=== PATIENT | female | born 1950 | race Caucasian/White ===

== ENCOUNTER 2019-06-21 08:56 | Emergency (ER) | payer OTHER ==
[~2019-06-21] VITALS: Ht 157.5 cm; Wt 69.9 kg
[2019-06-21 09:23] VITALS: BP 112/73
--- NOTE | 2019-06-21 09:29 | NUR ---
PT AMBULATED TO ER BED 01
--- NOTE | 2019-06-21 10:03 | NUR ---
PATIENT PRESENTS TO ED WITH C/O INTERMITENT N/V/D X 1 MONTH. PT STATES THAT SHE NOTICED SYMPTOMS AFTER UNDERGOING KNEE REPLACEMENT SURGERY LAST APR 2019. DENIES URINARY PROBLEMS. NO OTHER SYMPTOMS REPORTED. ABDOMEN IS SOFT, NON-TENDER. BOWEL SOUNDS ACTIVE ON ALL QUADRANTS. PATIENT STATES PAIN OF 0/10 AT THIS TIME; VSS; PATIENT POSITIONED FOR COMFORT; HOB ELEVATED; BEDRAILS UP X2; BED DOWN. ER MD MADE AWARE OF PT STATUS. PMH: DM MEDS: OMEPRAZOLE, ONDANSETRON, PROCHLORPERAZINE NKA
[2019-06-21 12:01] VITALS: BP 112/73
--- NOTE | 2019-06-21 12:02 | NUR ---
Patient discharged with v/s stable. Written and verbal after care instructions given and explained. Patient alert, oriented and verbalized understanding of instructions. Ambulatory with assistive device (walker). All questions addressed prior to discharge. ID band removed. Patient advised to follow up with PMD. Rx of CIPRO, PHENERGAN given. Patient educated on indication of medication including possible reaction and side effects. Opportunity to ask questions provided and answered.
== END 2019-06-21 12:02 | disposition home or self-care (01) ==
LOC: MED 08:56
DX: R10.9 Unspecified abdominal pain (principal); R11.2 Nausea with vomiting, unspecified; R19.7 Diarrhea, unspecified; E11.9 Type 2 diabetes mellitus without complications; I10 Essential (primary) hypertension; Z90.49 Acquired absence of other specified parts of digestive tract
CPT/HCPCS: 81002; 82948; 99283

== ENCOUNTER 2019-07-08 21:14 | Observation (INO) | payer OTHER ==
[~2019-07-08] VITALS: Ht 157.5 cm; Wt 67.1 kg
[2019-07-08 21:25] VITALS: BP 150/88
--- NOTE | 2019-07-08 21:25 | NUR ---
TO BED # 07 AMBULATORY
--- NOTE | 2019-07-08 21:37 | NUR ---
PT ASSESSMENT COMPLETE. PT PLACED IN GOWN. BEDRAILS UP X1. WILL CONTINUE TO MONITOR.
--- NOTE | 2019-07-08 21:45 | NUR ---
Dr. Guzman examining patient.
[2019-07-08] MEDS ORDERED: NACL 0.9% 1,000 ML IV SCH (21:56)
[2019-07-08] MEDS ORDERED: MORPHINE SULFATE 4 MG/ML SYR IVP ONE (22:00)
[2019-07-08] MEDS ORDERED: ONDANSETRON 4 MG/2 ML VIAL IVP ONE (22:00)
--- NOTE | 2019-07-08 22:20 | NUR ---
BLOOD DRAWN AND TAKEN TO LAB
--- NOTE | 2019-07-08 22:20 | NUR ---
CONSENT OBTAINED FOR CT WITH CONTRAST.
[2019-07-08 22:23] LABS: BASOPHILS % (AUTO) 0.3 % (0.0-2.0); HEMOGLOBIN 12.1 g/dL (12.0-16.0); LYMPHOCYTES # (AUTO) 0.9 K/uL (2.5-16.5); MEAN CORPUSCULAR HEMOGLOBIN 28 pg (27-31); MEAN CORPUSCULAR HGB CONC 33 g/dL (33-37); MEAN CORPUSCULAR VOLUME 84.5 fL (80-94); MONOCYTES # (AUTO) 0.3 K/uL (0.8-1.0); MONOCYTES % (AUTO) 2.3 % (1.7-9.3); NEUTROPHILS # (AUTO) 11.7 K/uL (1.8-7.7); NEUTROPHILS % (AUTO) 90.3 % (42.2-75.2); PLATELET COUNT (AUTO) 360 K/uL (140-450); RED BLOOD CELL COUNT(AUTO) 4.38 MIL/uL (4.20-5.40); RED CELL DISTRIBUTION WIDTH 14.8 % (11.6-13.7)
--- NOTE | 2019-07-08 22:39 | NUR ---
PT URINE SPECIMEN TAKEN TO LAB.
[2019-07-08 22:41] LABS: APPEARANCE,URINE SL CLOUDY (CLEAR); BILIRUBIN,URINE NEGATIVE (NEGATIVE); BLOOD, URINE 3+ (NEGATIVE); COLOR,URINE YELLOW (YELLOW); LEUKOCYTE ESTERASE ,URINE TRACE (NEGATIVE); NITRITE, URINE NEGATIVE (NEGATIVE); PH,URINE 6.5 (5.0-9.0); UGLUCOSE NEGATIVE (NEGATIVE)
[2019-07-08 22:46] LABS: ANION GAP 13.5 (8-16); CARBON DIOXIDE 28.5 mmol/L (21-32); CREATININE 0.9 mg/dL (0.6-1.3); TOTAL BILIRUBIN 0.2 mg/dL (0.0-1.0)
--- NOTE | 2019-07-08 22:57 | NUR ---
PT AMBULATED TO RESTROOM USING WALKER, STEADY GAIT OBSERVED.
[2019-07-08 23:02] LABS: RBC,URINE TOO NUMEROUS TO COUN /HPF (0-5)
[2019-07-08 23:07] LABS: LYMPHOCYTES % (AUTO) 7.1 % (20.5-51.1)
--- NOTE | 2019-07-08 23:20 | NUR ---
PT REPORTS DECREASED PAIN, 0/10. WILL CONTINUE TO MONITOR.
--- NOTE | 2019-07-08 23:41 | NUR ---
PT TAKEN TO CT
--- NOTE | 2019-07-09 00:01 | NUR ---
PT RETURN FROM CT
[2019-07-09] MEDS ORDERED: cefTRIAXone 1,000 MG VIAL ONE (00:03)
--- NOTE | 2019-07-09 01:30 | NUR ---
PT SEATED UPRIGHT IN BED. NO C/O PAIN AT THIS TIME. WILL CONTINUE TO MONITOR.
--- NOTE | 2019-07-09 02:47 | NUR ---
OK TO ADMIT PER [facility]. REFERENCE #[id number].
--- NOTE | 2019-07-09 04:24 | NUR ---
PT LAYING IN BED. BEDRAIL X2 UP. SAFETY MEASURES IN PLACE. NO C/O PAIN AT THIS TIME. WILL CONTINUE TO MONITOR.
[2019-07-09] MEDS ORDERED: GLIP10TA12 PO (04:30)
[2019-07-09] MEDS ORDERED: LOSA50TA66 PO (04:30)
[2019-07-09] MEDS ORDERED: METF500T PO (04:30)
--- NOTE | 2019-07-09 04:45 | NUR ---
Patient will be admitted to care of DR. KEY. Admited to [facility]. Will go to room 122A. Belongings list completed. Report to [facility]. TRANSFER OF CARE AT THIS TIME.
--- NOTE | 2019-07-09 04:50 | NUR ---
RECEIVED REPORT FROM [facility] ER NURSE. PATIENT IS AWAKE, ALERT, AND COOPERATIVE. CHIEF COMPLAINT ABDOMINAL PAIN. ADMITTING DIAGNOSIS UTI. RESPIRATION EVEN UNLABORED ON ROOM AIR. NO DISTRESS NOTED. SKIN IS WARM AND DRY. IV PATENT AND INTACT. HEART RATE REGULAR. S1&S2 NOTED. LUNGS SOUNDS CLEAR ON AUSCULTATION. BOWEL SOUNDS PRESENT IN ALL QUADRANTS. ABDOMEN SOFT AND NON-TENDER. DENIES PAIN. LAST BM 07/06/19. PATIENT USES ASSISTIVE DEVICE TO AMBULATE. MRSA SCREEN DONE. VITALS WERE TAKEN. ORIENT PATIENT TO THE ROOM, STAFF, AND CALL LIGHT. PLAN OF CARE WAS DISCUSSED. AT BEDSIDE. ALL SAFETY MEASURES IN PLACE. BED IS AT LOW POSITION. CALL LIGHT WITHIN REACH AND VERBALIZES ITS USE. WILL CONTINUE TO MONITOR.
[2019-07-09 05:11] VITALS: BP 143/65
[2019-07-09] MEDS ORDERED: INSULIN LISPRO SLIDING SCALE 100 UNITS/ML VIAL SUBQ PRN (06:05)
[2019-07-09] MEDS ORDERED: DEXTROSE 50% 50 ML SYR IVP PRN (06:05)
[2019-07-09] MEDS ORDERED: ACETAMINOPHEN 325 MG TAB PO PRN (06:05)
[2019-07-09] MEDS ORDERED: IBUPROFEN 600 MG TAB PO PRN (06:05)
--- NOTE | 2019-07-09 06:30 | NUR ---
CHECKED PATIENT BLOOD SUGAR. PATIENT BLOOD SUGAR 93. WILL CONTINUE TO MONITOR
[2019-07-09] MEDS: NACL 0.9% 1,000 ML IV SCH ×2 (06:33→16:44)
[2019-07-09] MEDS: BLOOD GLUCOSE MONITORING 1 DEV DEV FS SCH ×3 (06:33→16:42)
--- NOTE | 2019-07-09 07:07 | NUR ---
ENDORSED PATIENT TO DAY SHIFT NURSE. PATIENT IN STABLE CONDITION.
--- NOTE | 2019-07-09 07:09 | NUR ---
RECEIVED BEDSIDE REPORT FROM [facility] COUNTERS NURSE ODALIS FOR CONTINUITY OF CARE. PT IS AWAKE AND RESTING ON BED. RESPIRATION EVEN AND UNLABORED ON RA. DENIED PAIN, SOB, AND DIZZINESS.NO SIGNS OF DISTRESS NOTED. IV CLEAN AND INTACT, INFUSING PER MD ORDER. SKIN CLEAN AND DRY. PT IS CONTINENT AND ABLE TO AMBULATE WITH WALKER WITH STANDBY ASSIST. SAFETY MEASURES IN PLACE. BED IN LOW POSITION AND CALL LIGHT WITHIN REACH. INSTRUCTED PT TO USE THE CALL LIGHT FOR ANY ASSISTANCE AND PT WAS AWARE.
[2019-07-09 08:00] VITALS: BP 132/58
--- NOTE | 2019-07-09 08:21 | NUR ---
PATIENT HAS BEEN SCREENED AND CATEGORIZED MODERATE NUTRITION RISK. PATIENT WILL BE SEEN WITHIN 3-5 DAYS OF ADMISSION. 07/11/19 07/13/[address]
--- NOTE | 2019-07-09 08:39 | NUR ---
PATIENT IS PARTICIPATING IN PT SESSION WITH PHYSICAL THERAPIST ANIRUDH. NO SIGNS OF DISTRESS NOTED.
--- NOTE | 2019-07-09 08:53 | NUR ---
PT IS SITTING UP ON BED AND TALKING TO VISITORS BY BEDSIDE. NO SIGNS OF DISTRESS NOTED. SAFETY MEASURES IN PLACE.
[2019-07-09] MEDS ORDERED: glipiZIDE 10 MG TAB PO SCH (09:00)
[2019-07-09] MEDS ORDERED: LOSARTAN 50 MG TAB PO SCH (09:00)
--- NOTE | 2019-07-09 09:11 | NUR ---
CHECKED BP PRIOR TO MED ADMINISTRATION, BP 129/54 PULSE 90. ADMINISTERED MEDS PER MD ORDER, MEDS EDUCATION PROVIDED TO PT AND PT VERBALIZED UNDERSTANDING. PT TOLERATED PO MEDS WELL. PT AWAKE AND TALKING TO VISITORS BY BEDSIDE. DENIED PAIN, URINATION URGENCY, AND SOB. NO SIGNS OF DISTRESS NOTED. SAFETY MEASURES IN PLACE. BED IN LOW POSITION AND CALL LIGHT WITHIN REACH. INSTRUCTED PT TO USE THE CALL LIGHT FOR ANY ASSISTANCE AND PT SAID " I WILL."
--- NOTE | 2019-07-09 11:06 | NUR ---
PT AWAKE AND TALKING TO DARIUS BY BEDSIDE. DENIED PAIN, SOB AND DIZZINESS. NO SIGNS OF DISTRESS NOTED. SAFETY MEASURES IN PLACE. BED LOW POSITION AND CALL LIGHT WITHIN REACH. INSTRUCTED PT TO USE THE CALL LIGHT FOR ANY ASSISTANCE AND PT SAID "OK."
--- NOTE | 2019-07-09 11:23 | NUR ---
CHECKED BLOOD GLUCOSE AND RECEIVED 66, NO INSULIN COVERAGE NEEDED. PT DENIED DIZZINESS. PT IS TALKING TO DARIUS BY BEDSIDE. NO SIGNS OF DISTRESS NOTED. SAFETY MEASURES IN PLACE.
--- NOTE | 2019-07-09 13:20 | NUR ---
PT AWAKE AND RESTING ON BED. DARIUS IS BY BEDSIDE. NO SIGNS OF DISTRESS NOTED. SAFETY MEASURES IN PLACE.
--- NOTE | 2019-07-09 14:05 | NUR ---
DC [age] YRS OLD FEMALE PATIENT WAS ADMITTED FROM HOME WITH A DX OF UTI . PT HAS A HX OF DM, HTN, UA SHOED 3+ BACTERIA CT ABD/PELVIS OBSTRUCTING 3MM CALCULUS IN THE LEFT URETER. ADMINISTERED IVF, ROCEPHIN IV ABX , PT EVAL. DC PLAN TO GO HOME WITH FAMILY WHEN STABLE CM TO FOLLOW.
--- NOTE | 2019-07-09 15:15 | NUR ---
DR KEY IS TALKING TO PT AND DARIUS. OBTAINED PT'S PHARMACY AND PROVIDED TO DR KEY. DR KEY WILL ORDER PT'S MEDS TO HER PREFERRED PHARMACY [facility] [address] IN [place]. NO SIGNS OF DISTRESS NOTED. SAFETY MEASURES IN PLACE.
[2019-07-09] MEDS ORDERED: TAMS0.4C96 PO (15:16)
[2019-07-09] MEDS ORDERED: [UNRECOGNIZED DRUG - CODE] PO (15:16)
[2019-07-09] MEDS ORDERED: CEPH-1019 PO (15:16)
[2019-07-09 16:00] VITALS: BP 129/60
[2019-07-09 16:53] LABS: BASOPHILS # (AUTO) 0.1 K/uL (0.00-0.22); BASOPHILS % (AUTO) 1.2 % (0.0-2.0); EOSINOPHILS # (AUTO) 0.1 K/uL (0-0.4); EOSINOPHILS % (AUTO) 1.3 % (0.0-4.0); HEMATOCRIT 30.7 % (36-48); HEMOGLOBIN 9.9 g/dL (12.0-16.0); LYMPHOCYTES # (AUTO) 2.3 K/uL (2.5-16.5); LYMPHOCYTES % (AUTO) 30.2 % (20.5-51.1); MEAN CORPUSCULAR HEMOGLOBIN 28 pg (27-31); MEAN CORPUSCULAR HGB CONC 32 g/dL (33-37); MEAN CORPUSCULAR VOLUME 85.2 fL (80-94); MONOCYTES # (AUTO) 0.6 K/uL (0.8-1.0); MONOCYTES % (AUTO) 7.5 % (1.7-9.3); NEUTROPHILS # (AUTO) 4.6 K/uL (1.8-7.7); NEUTROPHILS % (AUTO) 59.8 % (42.2-75.2); PLATELET COUNT (AUTO) 310 K/uL (140-450); RED BLOOD CELL COUNT(AUTO) 3.61 MIL/uL (4.20-5.40); RED CELL DISTRIBUTION WIDTH 14.9 % (11.6-13.7); WHITE BLOOD COUNT (AUTO) 7.7 K/uL (4.8-10.8)
[2019-07-09 17:23] LABS: ALBUMIN 3.1 g/dL (3.4-5.0); ANION GAP 11.6 (8-16); CARBON DIOXIDE 26.8 mmol/L (21-32); CREATININE 0.7 mg/dL (0.6-1.3); POTASSIUM 3.4 mmol/L (3.5-5.1); TOTAL BILIRUBIN 0.2 mg/dL (0.0-1.0)
--- NOTE | 2019-07-09 17:44 | NUR ---
RECEIVED A CALL FROM DR KEY, UPDATED DR KEY WITH PT'S LAB INFORMATION, POTASSIUM 3.4 AND CREATININE 0.7, WBC IS STILL PENDING. DR KEY WAS AWARE AND SAID "IF WBC IS STABLE, NO INCREASE, SHE CAN GO. ORDER 40 MEQ K PO ONCE." REPEATED ORDER AND CONFIRMED WITH DR KEY. WILL ORDER PER MD ORDER.
[2019-07-09] MEDS ORDERED: POTASSIUM CHLORIDE 10 MEQ TABER PO SCH (18:00)
--- NOTE | 2019-07-09 18:04 | NUR ---
ADMINISTERED 40 EMQ K DUR VIA PO, MED ED PROVIDED TO PT AND , PT TOLERATED MED WELL. PT IS CHANGING INTO HER OWN AT THIS TIME. NO SIGNS OF DISTRESS NOTED. SAFETY MEASURES IN PLACE.
--- NOTE | 2019-07-09 18:22 | NUR ---
DISCHARGE INSTRUCTION PROVIDED TO PT AND DARIUS AT BEDSIDE. EDUCATED PT ON FOLLOW UP WITH MD, SEEK MEDICAL HELP IN CASE OF MEDICAL EMERGENCY, DISEASE MANAGEMENT, MEDICATION REGIMEN, SIDE EFFECTS AND DIET. ANSWERED ALL PT AND DARUIS' QUESTIONS, ALL VERBALIZED UNDERSTANDING. PT IS UP TO DATE WITH PNA AND FLU VACCINES. PT IS AWARE THAT PRESCRIPTION SENT TO HER PREFERRED PHARMACY [facility] IN [place]. REMOVED IV AND CANNULA INTACT AND NO BLEEDING ON IV SITE. REMOVED ALL ARM BANDS. DARIUS CHECKED ALL CABINETS AND TOOK ALL PT'S BELONGINGS HOME. RN EMERGENCY ESCORTED PT WITH WHEELCHAIR TO FRONT LOBBY. PT IS GOING TO DISCHARGE ACCOMPANY WITH DARIUS. PT IS IN STABLE CONDITION.
== END 2019-07-09 18:22 | disposition home or self-care (01) ==
LOC: MED 21:14 → MTU 07-09 04:20
PROVIDERS: ADMIT Hospitalist; ATTEND Hospitalist
DX: N20.0 Calculus of kidney (principal); N39.0 Urinary tract infection, site not specified; R11.2 Nausea with vomiting, unspecified; Z96.651 Presence of right artificial knee joint
CPT/HCPCS: 36415; 74177; 80053; 81001; 82150; 82948; 83605; 83690; 85025; 87081; 87086; 96361; 96365; 96375; 97162; 99285; G0378; J0696; J1815; J2270; J2405; J7030; J7060; Q9967

== ENCOUNTER 2019-07-16 12:32 | Emergency (ER) | payer OTHER ==
[~2019-07-16] VITALS: Ht 157.5 cm; Wt 67.1 kg
[~2019-07-16 12:32] MED LIST: CEPH-1019 PO; GLIP10TA12 PO; LOSA50TA66 PO; METF500T PO; TAMS0.4C96 PO; [UNRECOGNIZED DRUG - CODE] PO
[2019-07-16 12:48] VITALS: BP 107/56
--- NOTE | 2019-07-16 13:53 | NUR ---
69 Y/O FEMALE PRESENTS WITH URINARY BURNING/FREQUENCY S/P URINARY CATHETER INSERTION IN DEC. PT REPORTS SHE HAS BEEN TREATED WITH SEVERAL ANTIBX (AMOXCILLIN, CIPRO) DUE TO MULTIPLE UTI'S BUT BURNING/FREQUENCY DOES NOT GO AWAY. PT REPORTS SHE HAS TAKEN AZO TODAY, AND HER URINE IS A ORANGE COLOR. RATES BURNING PAIN 10/10. DENIES N/V/D. RESP EVEN AND UNLABORED. LUNG SOUNDS CLEAR IN BILAT LOBES. AAOX4. CAP REFILL <3 PMH: DM, HTN NKA
--- NOTE | 2019-07-16 14:34 | NUR ---
URINE SAMPLE TAKEN TO LAB
[2019-07-16 14:43] VITALS: BP 107/56
--- NOTE | 2019-07-16 14:43 | NUR ---
Patient discharged with v/s stable. Written and verbal after care instructions given and explained. Patient alert, oriented and verbalized understanding of instructions. Ambulatory with steady gait. All questions addressed prior to discharge. ID band removed. Patient advised to follow up with PMD. Rx of PYRIDIUM, BACTRIM given. Patient educated on indication of medication including possible reaction and side effects. Opportunity to ask questions provided and answered.
== END 2019-07-16 14:43 | disposition home or self-care (01) ==
LOC: MED 12:32
DX: N39.0 Urinary tract infection, site not specified (principal); I10 Essential (primary) hypertension; Z79.899 Other long term (current) drug therapy; Z79.84 Long term (current) use of oral hypoglycemic drugs; Z98.890 Other specified postprocedural states; Z90.49 Acquired absence of other specified parts of digestive tract
CPT/HCPCS: 81002; 87086; 99283

== ENCOUNTER 2021-04-25 15:19 | Emergency (ER) | payer OTHER ==
[~2021-04-25] VITALS: Ht 157.5 cm; Wt 80.7 kg
[~2021-04-25 15:19] MED LIST changes: -CEPH-1019 PO; +METO25TA PO; -TAMS0.4C96 PO; -[UNRECOGNIZED DRUG - CODE] PO
[2021-04-25 15:40] VITALS: BP 147/64
--- NOTE | 2021-04-25 15:44 | NUR ---
PT W/C ASSISTED TO BED 11.
--- NOTE | 2021-04-25 15:45 | NUR ---
70 y/o F BIBA self from home c/o low and mid back pain x 1 week. Patient A&Ox4, non-ambulatory, reports feeling low and mid back pain x 1 week. Pt states 10/10, sharp/constant, non-radiating pain. Patient denies abdominal pain, chest pain, SOB, dizziness, vomiting, fever, chills, dysuria, urinary symptoms. Pt compliant with DM medications. Bed locked in lowest position, side rails x 1, call light in reach. Spouse states patient seen here on 04/20/2021, left AMA. PMH: DM2, HTN Meds: glipzide, metformin, metoprolol, losartan NKA
[2021-04-25 16:57] LABS: BASOPHILS % (AUTO) 0.4 % (0.0-2.0); EOSINOPHILS # (AUTO) 0.1 K/uL (0-0.4); EOSINOPHILS % (AUTO) 0.6 % (0.0-4.0); HEMATOCRIT 27.8 % (36-48); HEMOGLOBIN 9.4 g/dL (12.0-16.0); LYMPHOCYTES # (AUTO) 0.8 K/uL (2.5-16.5); LYMPHOCYTES % (AUTO) 7.6 % (20.5-51.1); MEAN CORPUSCULAR HEMOGLOBIN 28 pg (27-31); MEAN CORPUSCULAR HGB CONC 34 g/dL (33-37); MEAN CORPUSCULAR VOLUME 82.8 fL (80-94); MONOCYTES # (AUTO) 0.6 K/uL (0.8-1.0); MONOCYTES % (AUTO) 5.5 % (1.7-9.3); NEUTROPHILS # (AUTO) 9.3 K/uL (1.8-7.7); NEUTROPHILS % (AUTO) 85.9 % (42.2-75.2); PLATELET COUNT (AUTO) 293 K/uL (140-450); RED BLOOD CELL COUNT(AUTO) 3.36 MIL/uL (4.20-5.40); RED CELL DISTRIBUTION WIDTH 16.6 % (11.6-13.7); WHITE BLOOD COUNT (AUTO) 10.8 K/uL (4.8-10.8)
[2021-04-25 17:09] LABS: ANION GAP 16.2 (8-16); CARBON DIOXIDE 23.8 mmol/L (21-32); CHLORIDE 96 mmol/L (98-107); CREATININE 1.2 mg/dL (0.6-1.3); GLUCOSE 125 mg/dL (74-106); SODIUM SERUM 133 mmol/L (136-145); UREA NITROGEN, BLOOD 17 mg/dL (7-18)
[2021-04-25 17:40] VITALS: BP 138/72
--- NOTE | 2021-04-25 17:55 | NUR ---
Patient discharged with v/s stable. Written and verbal after care instructions given and explained for dehydration. Patient verbalized understanding. Wheel Chair Assisted with steady gait accompanied by spouse. All questions addressed prior to discharge. Advised to follow up with PMD.
== END 2021-04-25 17:55 | disposition home or self-care (01) ==
LOC: MED 15:19
DX: M54.50 Low back pain, unspecified (principal); G89.29 Other chronic pain; R79.89 Other specified abnormal findings of blood chemistry; E11.9 Type 2 diabetes mellitus without complications; I10 Essential (primary) hypertension; Z79.899 Other long term (current) drug therapy
CPT/HCPCS: 36415; 80048; 85025; 99282